=== PATIENT | male | born 1945 | race African-American/Black ===

== ENCOUNTER 2020-05-09 13:35 | Inpatient (IN) | payer MEDICARE, OTHER ==
[~2020-05-09] VITALS: Ht 170.2 cm; Wt 62.3 kg
--- NOTE | 2020-05-09 13:59 | Emergency Department Note ---
History of Present Illnes History of Present Illness Chief Complaint: General Medicine Complaints History of Present Illness This is a 74 year old male Chief Complaint Comment SENT OVER BY HIS DOCTOR FOR HGB 6.0/HCT 22.8 C/O OF 1 1/2 MTHS DISTENDED ABDOMEN, LEFT UPPER ABDOMINAL PAIN, SHORTNESS OF BREATH. WEIGHT LOSS. X 3 WEEKS "PINGING HEADACHE". Historian: Patient Arrival Mode: Car Additional Treatment SPONGE DIVER: NONE Store Associate Required: No Onset (how long ago): week(s) Location: [facility] Quality: Sharp Radiation: Reports non-radiation Severity: moderate Onset quality: gradual Duration (how long): week(s) Timing of current episode: constant Progression: unchanged Chronicity: new Context: Denies recent illness, Denies recent surgery Relieving factors: none Exacerbating factors: none Associated symptoms: Reports denies other symptoms Treatments prior to arrival: none Past Medical/Family History Physician Review I have reviewed the patient's past medical and family history. Any updates have been documented here. Past Medical History Recent Fever: No Clinical Suspicion of Infectio: No New/Unexplained Change in Ment: No Other Medical History: ARTHRITIS Other Surgery: LEFT ANKLE FX Review of Systems Review of Systems Constitutional: Reports no symptoms EENTM: Reports no symptoms Cardiovascular: Reports no symptoms Respiratory: Reports no symptoms Gastrointestinal: Reports abdominal pain Genitourinary: Reports no symptoms Musculoskeletal: Reports no symptoms Integumentary: Reports no symptoms Neurological: Reports no symptoms Psychological: Reports no symptoms Endocrine: Reports no symptoms Hematological/Lymphatic: Reports no symptoms Physical Exam Related Data Triage Vital Signs Vital Signs Date Time Temp Pulse Resp B/P (MAP) Pulse Ox O2 Delivery O2 Flow Rate FiO2 05/09/20 13:49 98.5 95 18 157/85 100 Room Air Vital signs reviewed: Yes Physical Exam CONSTITUTIONAL Constitutional: Present well-developed, Present well-nourished HENT HENT: Present normocephalic, Present atraumatic, Present oropharynx clear/moist, Present nose normal HENT L/R: Present left ext ear normal, Present right ext ear normal EYES Eyes: Reports PERRL, Reports conjunctivae normal NECK Neck: Present ROM normal PULMONARY Pulmonary: Present effort normal, Present breath sounds normal CARDIOVASCULAR Cardiovascular: Present regular rhythm, Present heart sounds normal, Present capillary refill normal, Present normal rate GASTROINTESTINAL Abdominal: Present soft, Present nontender, Present bowel sounds normal GENITOURINARY Genitourinary: Present exam deferred SKIN Skin: Present warm, Present dry MUSCULOSKELETAL Musculoskeletal: Present ROM normal NEUROLOGICAL Neurological: Present alert, Present oriented x 3, Present no gross motor or sensory deficits PSYCHOLOGICAL Psychological: Present mood/affect normal, Present judgement normal Results Laboratory Lab results reviewed: Yes Imaging Imaging results reviewed: Yes Diagnostics Tests Diagnostic test(s) reviewed: Yes Procedures 12 Lead ECG Interpretation ECG Interpretation : Store Associate: Interpreted by ED physician Date: May 09, 2020 Rhythm: sinus rhythm Rate: normal BPM: 89 QRS axis: normal ST segments normal: Yes T waves normal: Yes Clinical Impression: non-specific ECG Assessment & Plan Medical Decision Making MDM 74 y.o Presents for anemia. W/u shows cancer and anemia. Will admit to Dr. Olvera. 1UPRBC given. Reassessment Reassessment time: 17:58 Reassessment Well appearing, NAD Assessment & Plan Final Impression: (1) Anemia Depart Disposition: ADMITTED Last Vital Signs Date Time Temp Pulse Resp B/P (MAP) Pulse Ox O2 Delivery O2 Flow Rate FiO2 05/09/20 13:49 98.5 95 18 157/85 100 Room Air PRINCESS EASLEY MD May 09, 2020 13:59
[2020-05-09 14:51] LABS: BASOPHILS % 0.3 % (0.0-1.0); EOSINOPHILS # (AUTO) 0.1 (0.0-0.4); EOSINOPHILS % 0.8 % (0.0-6.0); HEMATOCRIT 23.7 % (38.2-49.6); LYMPHOCYTES # (AUTO) 1.2 (1.0-3.2); LYMPHOCYTES % 11.9 % (18.0-39.1); MEAN CORPUSCULAR HEMOGLOBIN 16.8 pg (28-32); MEAN CORPUSCULAR HGB CONC 27.4 g/dL (31-35); MEAN CORPUSCULAR VOLUME 61.1 fL (81-99); MONOCYTES # (AUTO) 1.2 (0.2-0.8); MONOCYTES % 11.5 % (4.4-11.3); NEUTROPHILS # (AUTO) 7.7 (2.1-6.9); PLATELET COUNT 529 x10e3/uL (140-360); RED BLOOD COUNT 3.88 x10e6/uL (4.3-5.7); RED CELL DISTRIBUTION WIDTH 21.9 % (11.7-14.4)
[2020-05-09 14:55] LABS: HEMOGLOBIN 6.5 g/dL (14.0-18.0)
[2020-05-09] MEDS ORDERED: SODIUM CHLORIDE 0.9% 250ML 250 ML IV ONE (15:00)
[2020-05-09 15:10] LABS: ALANINE AMINOTRANSFERASE 8 IU/L (0-55); ALBUMIN 3.5 g/dL (3.5-5.0); ALBUMIN/GLOBULIN RATIO 0.9 (0.8-2.0); ALKALINE PHOSPHATASE 150 IU/L (40-150); ANION GAP 19.1 mmol/L (8-16); BLOOD UREA NITROGEN 12 mg/dL (7-26); BUN/CREATININE RATIO 14 (6-25); CARBON DIOXIDE 20 mmol/L (22-29); CHLORIDE 101 mmol/L (98-107); CREATININE, SERUM 0.84 mg/dL (0.72-1.25); EST GLOMERULAR FILTRATION RATE > 60 ML/MIN (60-); GLUCOSE 90 mg/dL (74-118); POTASSIUM 4.1 mmol/L (3.5-5.1); SODIUM 136 mmol/L (136-145)
[2020-05-09] MEDS ORDERED: SODIUM CHLORIDE 0.9% 50ML 50 ML ONE (15:28)
[2020-05-09] MEDS ORDERED: IOPAMIDOL 370 MG/ML 200 ML INFUS..BTL INJ ONE (15:28)
[2020-05-09 15:39] LABS: ANISOCYTOSIS MODERATE; HYPOCHROMASIA MODERATE; POIKILOCYTOSIS MODERATE
[2020-05-09 15:40] LABS: PLATELET ESTIMATE SLIGHTLY INCREASED; SCHISTOCYTES FEW; TARGET CELLS MODERATE
[2020-05-09 15:41] LABS: MICROCYTOSIS MODERATE; PLATELET MORPHOLOGY COMMENT FEW LARGE; POLYCHROMASIA FEW
--- NOTE | 2020-05-09 17:03 | Diagnostic Imaging Report ---
CT of the abdomen and pelvis, with contrast. History: Left upper quadrant abdominal pain. Comparison: None available. Technique: Multidetector CT scanning of the abdomen and pelvis was performed from the level of the lung bases to the inferior pubic rami after intravenous administration of contrast. Coronal and sagittal multiplanar reformations were obtained. RADIATION DOSE: Total DLP: 566.37 mGy*cm Dose modulation, iterative reconstruction, and/or weight based adjustment of the mA/kV was utilized to reduce the radiation dose to as low as reasonably achievable. FINDINGS: There is bibasilar atelectasis. The imaged portion of the heart demonstrates no significant abnormalities. There is a large volume of ascites present within the abdomen and pelvis. 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 A large, heterogeneous enhancing soft tissue density is identified within the left abdomen measuring approximately 5.6 x 7.1 cm (axial image 40) and may represent a conglomerate of peritoneal implants. Innumerable hypodense masses are identified within the liver. The largest measures 4.8 x 8.0 x 4.3 cm and is located within the superior right hepatic lobe. The stomach, spleen, pancreas, and bilateral adrenal glands are unremarkable. The kidneys are normal in size and location and symmetrically. There is no evidence for nephrolithiasis or hydronephrosis. A subcentimeter hypodensity is identified within the inferior pole the right kidney which is too small to definitively characterize. No ureteral stone or dilatation is appreciated. The urinary bladder demonstrates no significant abnormalities. The prostate is enlarged measuring 5 cm. The abdominal aorta is normal in course and caliber with atherosclerotic calcifications. The IVC is unremarkable. The portal venous system, SMV, splenic vein are patent. There is enlargement of the right common femoral vein which may be secondary to underlying DVT but suboptimally evaluated on this CT examination. Please note evaluation of bowel is limited without the use of enteric contrast material. There is mild wall thickening/distention of loops of small bowel which may be reactive secondary to ascites. There is no evidence for high-grade bowel obstruction. There is no intraperitoneal free air. Prominent to mildly enlarged lymph nodes are noted within the myriam hepatis and pericaval regions. The osseous structures demonstrate no evidence for acute fracture or destructive process. The extraperitoneal soft tissues are unremarkable. IMPRESSION: 1. Findings concerning for metastatic disease including numerable hepatic masses and peritoneal implants as detailed above. 2. Large volume of abdominopelvic ascites. 3. Mild wall thickening/distention noted of loops of small bowel which may be reactive secondary to ascites. No evidence for high-grade bowel obstruction. 4. Enlargement of the right common femoral vein which may reflect underlying DVT but is suboptimally evaluated on this examination. Recommend further evaluation with dedicated venous Doppler. Signed by: Dr. Vincent Joy MD on 05/09/2020 4:59 PM
--- OUTSIDE RECORDS SUMMARY | 2020-05-09 18:07 | XMS REPORT | Continuity of Care Document ---
Author Author [facility] Organization [facility] Address [address] [place] [id number] Phone Unavailable Care Team Providers Care Lurer Name Role Phone Lakisha Crane Attphyetienne Unavailable Problems This patient has no known problems. Allergies, Adverse Reactions, Alerts This patient has no known allergies or adverse reactions. Medications This patient has no known medications. Procedures This patient has no known procedures. Results Test Description Test Time Test Comments Results Result Comments Source CT ABDOMEN/PELVIS W 2020-05-09 16:41:00 [place] [address] Patient Name: GUIDO YE MR #: [id number] : 1945 Age/Sex: 74/M Req #: [id number] Adm Physician: Ordered by: Princess Crane MD Report #: [id number] Location: ER Room/Bed: Procedure: [id number] CT/CT ABDOMEN/PELVIS W Exam Date: 05/09/20 Exam Time: 1600 REPORT STATUS: Signed CT of the abdomen and pelvis, with contrast. History: Left upper quadrant abdominal pain. Comparison: None available. Technique: Multidetector CT scanning of the abdomen and pelvis was performed from the level of the lung bases to the inferior pubic rami after intravenous administration of contrast. Coronal and sagittal multiplanar reformations were obtained. RADIATION DOSE: Total DLP: 566.37 mGy*cm Dose modulation, iterative reconstruction, and/or weight based adjustment of the mA/kV was utilized to reduce the radiation dose to as low as reasonably achievable. FINDINGS: There is bibasilar atelectasi s. The imaged portion of the heart demonstrates no significant abnormalities. There is a large volume of ascites present within the abdomen and pelvis. 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 A large, heterogeneous enhancing soft tissue density is identified within the left abdomen measuring approximately 5.6 x 7.1 cm (axial image 40) and may represent a conglomerate of peritoneal implants. Innumerable hypodense masses are identified within the liver. The largest measures 4.8 x 8.0 x 4.3 cm and is located within the superior right hepatic lobe. The stomach, spleen, pancreas, and bilateral adrenal glands are unremarkable. The kidneys are normal in size and location and symmetrically. There is no evidence for nephrolithiasis or hydronephrosis. A subcentimeter hypodensity is identified within the inferior pole the right kidney which is too small to definitively characterize. No ureteral stone or dilatation is appreciated. The urinary bladder demonstrates no significant abnormalities. The prostate is enlarged measuring 5 cm. The abdominal aorta is normal in course and caliber with atherosclerotic calcifications. The IVC is unremarkable. The portal venous system, SMV, splenic vein are patent. There is enlargement of the right common femoral vein which may be secondary to underlying DVT but suboptimally evaluated on this CT examination. Please note evaluation of bowel is limited without the use of enteric contrast material. There is mild wall thickening/distention of loops of small bowel which may be reactive secondary to ascites. There is no evidence for high-grade bowel obstruction. There is no intraperitoneal free air. Prominent to mildly enlarged lymph nodes are noted within the myriam hepatis and pericaval regions. The osseous structures demonstrate no evidence for acute fracture or destructive process. The extraperitoneal soft tissues are unremarkable. IMPRESSION: 1. Findings concerning for metastatic disease including numerable hepatic masses and peritoneal implants as detailed above. 2. Large volume of abdominopelvic ascites. 3. Mild wall thickening/distention noted of loops of small bowel which may be reactive secondary to ascites. No evidence for high-grade bowel obstruction. 4. Enlargement of the right common femoral vein which may reflect underlying DVT but is suboptimally evaluated on this examination. Recommend further evaluation with dedicated venous Doppler. Signed by: Dr. Vincent Joy MD on 05/09/2020 4:59 PM Dictated By: VINCENT JOY MD 58 Transcribed By: SIRISHA on 05/09/201658 COPY TO: PRINCESS CRANE MD
--- NOTE | 2020-05-09 19:33 | NUR ---
blood transfusion completed, no adverse reactions noted
--- NOTE | 2020-05-09 19:40 | NUR ---
REPORT RECEIVED FROM VINCENZO BUTLER RN, PATIENT PENDING ARRIVAL TO THE FLOOR, S/P BLOOD TRANSFUSION FOR HGN 6.5, BLOOD REDRAW IN THE AM, AOX3, FULL CODE, PENDING ARRIVAL TO THE FLOOOR
--- NOTE | 2020-05-09 19:44 | NUR ---
nursing chart check: laina rn-manager of housekeeping notified of stat venous doppler from previous shift.
[2020-05-09 19:56] LABS: BILIRUBIN,URINE NEGATIVE (NEGATIVE); CLARITY,URINE SL CLOUDY (CLEAR); COLOR,URINE YELLOW (YELLOW); KETONES,URINE TRACE (NEGATIVE); LEUKOCYTE ESTERASE ,URINE NEGATIVE (NEGATIVE); NITRITE,URINE NEGATIVE (NEGATIVE); PROTEIN,URINE DIPSTICK NEGATIVE (NEGATIVE); URINE UROBILINOGEN 0.2 mg/dL (0.2 - 1)
[2020-05-09 19:57] LABS: BACTERIA,URINE RARE /HPF; EPITHELIAL CELLS,URINE RARE /LPF; RBC,URINE 0-5 /HPF (0-5); WBC,URINE (MAN) 0-5 /HPF (0-5)
[2020-05-09 20:00] VITALS: BP 172/87
[2020-05-09 20:51] VITALS: BP 172/87
[2020-05-09 21:43] VITALS: BP 172/87
[2020-05-09] MEDS: CLONIDINE HCL 0.1 MG TAB PO PRN (21:55)
--- NOTE | 2020-05-09 23:10 | NUR ---
CT AB/PELVIS Enlargement of the right common femoral vein which may reflect underlying DVT but is suboptimally evaluated on this examination. Recommend further evaluation with dedicated venous Doppler. DOPPLER COMPLETED NEGATIVE
[2020-05-10] VITALS (13 sets, daily range): BP systolic 149–173; BP diastolic 83–94
[2020-05-10 05:23] LABS: BASOPHILS % 0.3 % (0.0-1.0); EOSINOPHILS # (AUTO) 0.2 (0.0-0.4); EOSINOPHILS % 1.4 % (0.0-6.0); HEMATOCRIT 23.8 % (38.2-49.6); LYMPHOCYTES # (AUTO) 1.5 (1.0-3.2); LYMPHOCYTES % 13.5 % (18.0-39.1); MEAN CORPUSCULAR HEMOGLOBIN 17.9 pg (28-32); MEAN CORPUSCULAR HGB CONC 28.6 g/dL (31-35); MEAN CORPUSCULAR VOLUME 62.8 fL (81-99); MONOCYTES # (AUTO) 1.4 (0.2-0.8); MONOCYTES % 12.6 % (4.4-11.3); NEUTROPHILS # (AUTO) 7.9 (2.1-6.9); NEUTROPHILS % 71.7 % (38.7-80.0); PLATELET COUNT 455 x10e3/uL (140-360); RED BLOOD COUNT 3.79 x10e6/uL (4.3-5.7); RED CELL DISTRIBUTION WIDTH 24.7 % (11.7-14.4)
[2020-05-10 05:27] LABS: HEMOGLOBIN 6.8 g/dL (14.0-18.0)
[2020-05-10 05:48] LABS: ANION GAP 16.9 mmol/L (8-16); BLOOD UREA NITROGEN 11 mg/dL (7-26); BUN/CREATININE RATIO 14 (6-25); CALCIUM 7.6 mg/dL (8.4-10.2); CARBON DIOXIDE 18 mmol/L (22-29); CHLORIDE 103 mmol/L (98-107); CREATININE, SERUM 0.78 mg/dL (0.72-1.25); EST GLOMERULAR FILTRATION RATE > 60 ML/MIN (60-); GLUCOSE 97 mg/dL (74-118); POTASSIUM 3.9 mmol/L (3.5-5.1); SODIUM 134 mmol/L (136-145)
--- NOTE | 2020-05-10 06:53 | NUR ---
lab called critical hbg result 6.8, MD Olvera paged, awaiting callback
[2020-05-10 10:22] LABS: ANISOCYTOSIS MODERATE; HYPOCHROMASIA MODERATE
[2020-05-10 10:23] LABS: PLATELET ESTIMATE SLIGHTLY INCREASED; RBC MORPHOLOGY COMMENT ABNORMAL
[2020-05-10 10:28] LABS: PLATELET MORPHOLOGY COMMENT RARE EDTA CLUMPING
[2020-05-10] MEDS: HYDROMORPHONE 1MG/1ML INJ IV PRN (17:05)
[2020-05-10] MEDS: DOCUSATE SODIUM 100 MG CAP PO SCH (17:05)
--- NOTE | 2020-05-10 19:28 | NUR ---
PATIENT PENDING BLOOD TRANSFUSION 3 UNITS PRBC, LAB CALLED, BLOOD NOT READY OF YET, THEY WILL CALL WHEN READY, CONSENT CONFIRMED SIGNED ALREADY IN CHART
[2020-05-10] MEDS ORDERED: SODIUM CHLORIDE 0.9% 250ML 250 ML IV SCH (19:30)
[2020-05-10] MEDS ORDERED: FUROSEMIDE INJ 10 MG/ML 4 ML VIAL IV SCH (19:30)
[2020-05-10] MEDS: CLONIDINE HCL 0.1 MG TAB PO PRN (21:00)
--- NOTE | 2020-05-10 21:15 | NUR ---
BLOOD TRANSFUSION, UNIT #1 STARTED, PATIENT AOX3, NO DISTRESS NOTED, BLOOD PRESSURE NOTED >160 CLONIDINE GIVEN AT START OF TRANSFUSION TO HELP DECREASE BLOOD PRESSURE, IV SITE RAC PATENT NO INFILTRATION NOTED, SITE NO SWELLING NO LEAKING NOTED, DENIES PAIN, VITALS MONITORED PER PROTOCOL FOR BLOOD TRANSFUSION CALL LIGHT WITHIN REACH
--- NOTE | 2020-05-10 22:23 | NUR ---
MD GONZALEZ NOTIFIED BLOOD TRANSFUSION STARTED AND PATIENT BLOOD PRESSURE CURRENTLY 170/94, ATTEMPTING TO GET ORDERS FOR MEDICATION TO DECREASE BLOOD PRESSURE, DIRECTLY CONTACTED WITH ME ORDERED FOR CLONIDINE 0.1MG PO Q4H TO BE GIVEN FOR SBP <160 AND PROCEED WITH BLOOD TRANSFUSION ORDERED
[2020-05-11] VITALS (11 sets, daily range): BP systolic 148–182; BP diastolic 89–104
--- NOTE | 2020-05-11 00:30 | NUR ---
blood transfusion completed for unit #1, tolerated well
[2020-05-11] MEDS ORDERED: CLONIDINE HCL 0.1 MG TAB PO PRN (01:00)
--- NOTE | 2020-05-11 04:01 | NUR ---
SECOND UNIT OF PRBC OF THREE COMPLETED, NO REACTION NOTED, IV SITE LEFT AC PATENT FLUSHES WELL, PATIENT SLEEPING, REQUESTING THAT HE IS ABLE TO GET "FEW HOURS OF SLEEP BEFORE NEXT UNIT/LAST ONE IS GIVEN", ADVISED PATIENT THAT SECOND UNIT CAN BE STARTED IN THE AM PRIOR TO BREAKFAST, WILL ENDORSE TO DAYSHIFT TO GIVEN LAST UNIT, FOLLOWED BY WILL PT VSS AFEBRILE AT THIS TIME
--- NOTE | 2020-05-11 06:05 | NUR ---
MD JENKINS OFFICE CALLED FOR ORDERS, PT C/O CONSTIPATION, UNABLE TO COLLECT STOOL OCCULT, PT WANTED ME TO CALL MD TO GET SOMETHING STRONGER
[2020-05-11] MEDS: DOCUSATE SODIUM 100 MG CAP PO SCH ×2 (08:05→16:27)
[2020-05-11] MEDS ORDERED: SODIUM CHLORIDE 0.9% 250ML 250 ML ONE (09:26)
--- NOTE | 2020-05-11 09:30 | NUR ---
blood transfusion started.
--- NOTE | 2020-05-11 10:55 | Progress Note ---
DATE: 05/11/2020 SUBJECTIVE: Mr. Mendes is a 74-year-old man, who denies any prior medical history, came to the emergency room because he was sent by his doctor because hemoglobin was low. He was noticed to have abdominal distention and ascites, seen by hemato-oncologist. The patient has end-stage cancer. He will benefit from hospice. PHYSICAL EXAMINATION: GENERAL: Today, he is awake and alert. VITAL SIGNS: Temperature is 97.9, blood pressure 155/99. HEART: Regular rate. LUNGS: Poor inspiratory effort. ABDOMEN: Distended and has ascites. LABORATORY DATA: On the blood work, white count is 11.06, hemoglobin is 6.8, hematocrit 23.8. Potassium 3.9, creatinine 0.78. COVID test came back negative. Abdominal and pelvic CT showed metastatic disease with several hepatic masses and peritoneal implants, large volume ascites, mild wall thickening and distention of the small bowel loops. Enlargement of the right common femoral vein that reflects DVT. Venous Doppler was negative. It did not show any lower extremity DVT.. ASSESSMENT: 1. Severe anemia. 2. Weakness. 3. Abdominal distention and ascites. 4. Metastatic cancer with diseases of the liver and peritoneal area probably secondary from bowel from GI malignancy. 5. Hypertension. PLAN: At present time, continue to monitor hemoglobin, transfuse as needed. Continue blood pressure medications. Discussed with Dr. Winchester. The patient has a terminal disease. He is appropriate for hospice, so we are going to get hospice involved in the case. Overall prognosis of the patient is poor due to the dissemination of his cancer. MD JOSE Ortiz/MODL /[id number]
--- NOTE | 2020-05-11 11:48 | NUR ---
WENT TO SPEAK WITH PT ABOUT THE HOSPICE ORDER, HE BECAME UPSET AND STATED NO ONE TOLD HIM ABOUT IT. HE STATES THE DOCTOR JUST TOLD HIM HE HAS CANCER NOT WHAT KIND OR ANYTHING, HE STATES THE DOCTOR TOLD HIM THEY WERE COMING BACK TO DISCUSS THE PLAN AFTER HIS TRANSFUSION BUT HE HASN'T BEEN SICK OR IN THE HOSPITAL SINCE 1987. DOES NOT WANT TO SIGN FOR ANYTHING UNTIL HIS DOCTOR HAS THE DISCUSSION ABOUT WHAT TYPE AND WHAT CAN BE DONE.
--- NOTE | 2020-05-11 12:16 | Progress Note ---
DATE: 05/11/2020 SUBJECTIVE: Mr. Mars is a 74-year-old black gentleman who was referred to me for evaluation of anemia. I have seen the patient yesterday. I have spoken to the nurses along with the patient in the room. He was hard of hearing. However, we were able to communicate with him that he has an underlying malignancy. I had written for blood transfusion. I had given the instructions to the nurse. I had a call late night from the nurse that his blood pressure went up with blood transfusion. I tried to explain to her that he is hypertensive, he is on clonidine, and his initial blood pressure was 158/85, to go ahead and give him clonidine 0.1 mg p.o. q.4 hours p.r.n. for systolic above 160. However, she kept interrupting me that he has gotten clonidine. I again tried to keep my composure. I did tell her that hypertension is not a reaction to blood transfusion, hypotension would be considered an allergy. However, she still kept interrupting me. At this time, I said are you listening to me and she was fairly nasty over the phone telling me oh yeah, oh yeah. I did tell her please proceed with blood transfusion, give him the clonidine. I do not see report of the CBC and electrolytes, which I have ordered today. I will confine myself to Hematology/Oncology. Prognosis of this patient remains extremely guarded, CEA still elevated. MD OTILIA Galicia/ROCHELLE /[id number]
--- NOTE | 2020-05-11 13:00 | NUR ---
prbc transfusion completed. vitals stable.
--- NOTE | 2020-05-11 13:20 | NUR ---
patient had large bowel movement. occult stool sent.
[2020-05-11] MEDS ORDERED: FUROSEMIDE INJ 10 MG/ML 4 ML VIAL ONE (14:21)
[2020-05-11] MEDS: HYDROMORPHONE 1MG/1ML INJ IV PRN (14:32)
--- NOTE | 2020-05-11 14:46 | Consultation ---
DATE OF CONSULTATION: 05/10/[address] Claudine Olvera HISTORY OF PRESENT ILLNESS: Jerad Mendes is a 74-year-old black gentleman referred to me for evaluation of anemia. No history of hematochezia, melena, hematuria, hematemesis, or hemoptysis. The patient claims last hospitalization he had was in 1987. SOCIAL HISTORY: Noncontributory. FAMILY HISTORY: Noncontributory. ALLERGIES: REPORTED NONE. MEDICATIONS: At this time: 1. Clonidine. 2. Hydromorphone. 3. Docusate. REVIEW OF SYSTEMS: HEENT: Normal. CARDIAC: Normal. RESPIRATORY: Normal. GI: Normal. : Normal. MUSCULOSKELETAL: Normal. SKIN AND BREASTS: Normal. NEUROENDOCRINE: Normal. PAST MEDICAL HISTORY: Except for hypertension, the patient does not have any other medical problems. PHYSICAL EXAMINATION: GENERAL: A rather thin-built male, very hard of hearing, anemic. HEART: Within normal limits. LUNGS: Clear. ABDOMEN: Soft. Liver is felt 4 inches down the costal margin. RECTAL: Deferred. CENTRAL NERVOUS SYSTEM: Essentially, normal. EXTREMITIES: Essentially, normal. LABORATORY DATA: Lab shows hemoglobin of 6.8, hematocrit of 23.8, white count 11,600, platelets reported at 529,000. Chemistry showed sodium of 136, potassium 4.1, chloride is 101, CO2 of 20, BUN 12, creatinine 0.84, glucose is 90, and calcium 8. Alkaline phosphatase 80, SGOT 22, SGPT 8, total protein 7.6, albumin 3.5, globulin 4.1. IMAGING DATA: CAT scan of the abdomen shows the patient had a large volume ascites. Multiple enhancing peritoneal implants within the abdomen. A large heterogenous enhancing soft tissue density within the left abdomen 5.6 x 7.1 cm, suggestive of peritoneal implants, innumerable hypodense masses within the liver. The largest measures 4.8 x 8 x 4.3 cm, subcentimeter hypodensity identified within their inferior pole of the right kidney, which was too small to characterize. Prostate is enlarged, measuring 5 cm. There was enlargement of the right common femoral vein, there was mild wall thickening of the loops of small bowel. IMPRESSION: 1. Iron-deficiency anemia. 2. Secondary thrombocythemia. 3. Hypokalemia. 4. Hyperglobulinemia. 5. Ascites. 6. Peritoneal metastases. 7. Liver metastases. PLAN, COMMENTS AND SUGGESTIONS: Suggest CEA. Suggest blood transfusion. Suggest GI consult. Suggest INFeD. The patient is a terminal patient. Consider hospitalist strongly. Alis Winchester MD MAQ/MODL /[id number] cc: MD Phuc Ortiz MD
--- NOTE | 2020-05-11 19:05 | NUR ---
RECEIVED BEDSIDE SHIFT REPORT FROM PREVIOUS NURSE. CALL LIGHT WITHIN REACH. PATIENT SLEEPING IN BED.
[2020-05-12] VITALS (8 sets, daily range): BP systolic 146–164; BP diastolic 91–100
[2020-05-12 05:19] LABS: BASOPHILS % 0.3 % (0.0-1.0); EOSINOPHILS # (AUTO) 0.2 (0.0-0.4); EOSINOPHILS % 1.3 % (0.0-6.0); HEMATOCRIT 36.8 % (38.2-49.6); HEMOGLOBIN 11.5 g/dL (14.0-18.0); LYMPHOCYTES # (AUTO) 1.3 (1.0-3.2); LYMPHOCYTES % 10.8 % (18.0-39.1); MEAN CORPUSCULAR HEMOGLOBIN 21.4 pg (28-32); MEAN CORPUSCULAR HGB CONC 31.3 g/dL (31-35); MEAN CORPUSCULAR VOLUME 68.5 fL (81-99); MONOCYTES # (AUTO) 1.5 (0.2-0.8); NEUTROPHILS # (AUTO) 8.6 (2.1-6.9); NEUTROPHILS % 74.2 % (38.7-80.0); PLATELET COUNT 347 x10e3/uL (140-360); RED BLOOD COUNT 5.37 x10e6/uL (4.3-5.7)
[2020-05-12 05:35] LABS: ANION GAP 18.7 mmol/L (8-16); BLOOD UREA NITROGEN 8 mg/dL (7-26); BUN/CREATININE RATIO 11 (6-25); CALCIUM 7.7 mg/dL (8.4-10.2); CARBON DIOXIDE 18 mmol/L (22-29); CHLORIDE 102 mmol/L (98-107); CREATININE, SERUM 0.73 mg/dL (0.72-1.25); EST GLOMERULAR FILTRATION RATE > 60 ML/MIN (60-); GLUCOSE 88 mg/dL (74-118); POTASSIUM 3.7 mmol/L (3.5-5.1); SODIUM 135 mmol/L (136-145)
--- NOTE | 2020-05-12 07:18 | NUR ---
GAVE BEDSIDE SHIFT REPORT TO ONCOMING NURSE. CALL LIGHT WITHIN REACH. PATIENT IN BED. HOURLY ROUNDING PERFORMED.
[2020-05-12] MEDS: DOCUSATE SODIUM 100 MG CAP PO SCH ×2 (09:00→17:00)
[2020-05-12 09:32] LABS: ANISOCYTOSIS SLIGHT; BAND NEUTROPHILS % (MANUAL) 11 %; LYMPHOCYTES % (MANUAL) 20 % (19-48); MONOCYTES % (MANUAL) 5 % (3.4-9.0); NEUTROPHILS % (MANUAL) 64 % (40-74)
--- NOTE | 2020-05-12 10:21 | Progress Note ---
DATE: 05/12/2020 SUBJECTIVE: Mr. Mendes is a 74-year-old male, was referred to me for evaluation of anemia. For detailed consult, please review my dictation dated 05/11/2020. The patient had blood transfusion from 6.5 to 11.5. 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 His CEA is 1264. Again denoting epithelial origin, however, the patient is suggested hospice. I have discussed with Dr. Hayward, who is on-call for Dr. Olvera. No desire of treating him because he has far advanced malignancy. Hospice would be ideal. I will sign off one he signs hospice. Thank you very much for allowing me to participate in management of this patient. Alis Winchester MD MAQ/MODL /[id number] cc: MD Claudine Contreras MD
--- NOTE | 2020-05-12 13:44 | NUR ---
CM to pt's bedside. Pt stated he was told about his diagnosis and is in agreement with hospice. Pt states he was fine to go with any company. Choice letter signed for [facility]. Copy of choice letter given to pt. Discussed IMM with pt. He verbalized understanding. copy to pt. Signed copies of IMM and choice letter placed in chart. Referral faxed to [facility] at [phone]. Tom with [facility] was informed of referral and will contact pt.
--- NOTE | 2020-05-12 13:56 | Progress Note ---
DATE: 05/12/2020 CHIEF COMPLAINT/HISTORY OF PRESENT ILLNESS: This is a 74-year-old man, whose primary treating diagnosis is widespread metastatic malignancy with unknown origin. The patient has massive intraperitoneal and liver metastases. The patient's CEA level is elevated at 1264. The patient's white blood cell count today is 11,600 with 64% segmented neutrophils and 11% bands. The patient's hemoglobin is 11.5 g/dL, but he was transfused 4 units of packed red blood cells on May 11, 2020. The patient's BUN and creatinine today is 8 and 0.73 respectively. On May 09, 2020, the patient's AST and ALT were normal at 22 and 8 respectively. The patient voices no complaints other than mild constipation, which is actually relieved with prune juice. The patient was seen by Oncology, namely Dr. Alis Winchester, who highly recommended palliative treatment in the form of hospice care. The patient states he has lost 35 pounds in one year. REVIEW OF SYSTEMS: As per HPI. PHYSICAL EXAMINATION: GENERAL: He is awake and alert. He is fully oriented. He is in no distress. VITAL SIGNS: Height 5 feet 7 inches, weight 125 pounds, BMI 19. Blood pressure is 146/94, pulse is 100, respiratory rate 18, temperature 98.7, and oxygen saturation 100% on room air. INTEGUMENT: Skin is warm and dry. No pallor, jaundice, or diaphoresis. HEENT: Anicteric sclerae. Moist mucous membranes. NECK: Supple. CARDIOVASCULAR: Tachycardic rate. Regular rhythm. LUNGS: No rales. No rhonchi. No wheezes. ABDOMEN: Distended. EXTREMITIES: No edema or deformity, but he has muscle wasting. DIAGNOSES: 1. Widespread metastatic malignancy of unknown primary. 2. Massive intraperitoneal/liver metastases. 3. Iuwlt-ed-ellldgx anemia secondary to malignancy. 4. Underweight, BMI 19. PLAN: 1. I discussed with patient at length the results of his blood tests and imaging tests. 2. I did inform the patient that he has widely metastatic malignancy of unknown origin that carries an extremely poor prognosis. 3. I discussed end of life issues at length with the patient. 4. I did discuss the idea of pursuing hospice care and the patient is open to enrolling in this program. I spent 40 minutes in the care of this patient. MD ENRIQUE Contreras/ROCHELLE /[id number] MTDFahad
[2020-05-12] MEDS: HYDROMORPHONE 1MG/1ML INJ IV PRN (18:24)
--- NOTE | 2020-05-12 19:45 | NUR ---
Received the pt in report.aaox3.no pain voiced.iv to right ac is patent.bed locked and in lowest position. reena light within reach.instructed to call for assistance as needed.resting in the bed.
[2020-05-13] VITALS (9 sets, daily range): BP systolic 141–184; BP diastolic 86–102
[2020-05-13 06:24] LABS: BASOPHILS # (AUTO) 0.1 (0.0-0.1); BASOPHILS % 0.4 % (0.0-1.0); EOSINOPHILS # (AUTO) 0.2 (0.0-0.4); EOSINOPHILS % 1.3 % (0.0-6.0); HEMATOCRIT 35.8 % (38.2-49.6); HEMOGLOBIN 11.2 g/dL (14.0-18.0); LYMPHOCYTES # (AUTO) 1.2 (1.0-3.2); LYMPHOCYTES % 10.2 % (18.0-39.1); MEAN CORPUSCULAR HEMOGLOBIN 22.4 pg (28-32); MEAN CORPUSCULAR HGB CONC 31.3 g/dL (31-35); MEAN CORPUSCULAR VOLUME 71.7 fL (81-99); MONOCYTES # (AUTO) 1.5 (0.2-0.8); MONOCYTES % 12.8 % (4.4-11.3); NEUTROPHILS # (AUTO) 8.5 (2.1-6.9); NEUTROPHILS % 74.9 % (38.7-80.0); PLATELET COUNT 302 x10e3/uL (140-360); RED BLOOD COUNT 4.99 x10e6/uL (4.3-5.7); RED CELL DISTRIBUTION WIDTH 29.2 % (11.7-14.4)
--- NOTE | 2020-05-13 07:00 | NUR ---
BED SIDE SHIFT REPORT GIVEN TO ONCOMING RN.STABLE CONDITION.
[2020-05-13 07:08] LABS: ALANINE AMINOTRANSFERASE 9 IU/L (0-55); ALBUMIN/GLOBULIN RATIO 0.8 (0.8-2.0); ALKALINE PHOSPHATASE 156 IU/L (40-150); ANION GAP 15.9 mmol/L (8-16); BLOOD UREA NITROGEN 12 mg/dL (7-26); BUN/CREATININE RATIO 15 (6-25); CALCIUM 8.1 mg/dL (8.4-10.2); CARBON DIOXIDE 19 mmol/L (22-29); CHLORIDE 100 mmol/L (98-107); CREATININE, SERUM 0.82 mg/dL (0.72-1.25); EST GLOMERULAR FILTRATION RATE > 60 ML/MIN (60-); GLUCOSE 102 mg/dL (74-118); POTASSIUM 3.9 mmol/L (3.5-5.1); SODIUM 131 mmol/L (136-145)
[2020-05-13] MEDS: DOCUSATE SODIUM 100 MG CAP PO SCH ×2 (08:32→16:46)
[2020-05-13 09:09] LABS: ANISOCYTOSIS MODERATE; PLATELET ESTIMATE ADEQUATE; PLATELET MORPHOLOGY COMMENT FEW EDTA CLUMPING
[2020-05-13 09:11] LABS: TARGET CELLS FEW
[2020-05-13 09:12] LABS: HYPOCHROMASIA SLIGHT; POLYCHROMASIA FEW; RBC MORPHOLOGY COMMENT ABNORMAL
[2020-05-13 09:13] LABS: LARGE PLATELETS FEW
--- NOTE | 2020-05-13 09:49 | Progress Note ---
DATE: 05/13/2020 SUBJECTIVE: Mr. Jerad Mendes is a 74-year-old black gentleman with massive intra-abdominal metastases with a CEA more than 1300, consistent with primary being epithelial most probably colon and/or stomach. Inoperable terminal cancer. I have spoken to both Dr. Olvera and Dr. Eleazar Hayward for a hospice. I will continue to observe him until he signs hospice. I have no desire of treating him with systemic chemotherapy or even a biopsy. MD OTILIA Galicia/MODL /[id number]
--- NOTE | 2020-05-13 12:35 | Discharge Summary ---
ADMIT DIAGNOSES: 1. Profound anemia. 2. Numerous hepatic masses with ascites. DISCHARGE DIAGNOSES: 1. 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 2. Massive intraperitoneal/liver metastases. 3. Acute on chronic anemia secondary to malignancy. 4. Status post transfusion of 4 units of packed red blood cells. 5. Underweight, BMI 19. HOSPITAL COURSE: This is a 74-year-old man, who was initially admitted to [facility] with diagnosis of profound anemia and numerous liver lesions with ascites. During this hospitalization, he was transfused 4 units of packed red blood cells. Hemoccult stool was negative. The patient underwent a CT of the abdomen and pelvis on admission that revealed findings concerning for metastatic disease including innumerable hepatic masses and peritoneal implants. He was also found to have significant amount of ascites. The patient underwent a venous Doppler ultrasound of the bilateral lower extremities, which did not reveal any findings consistent with a deep venous thrombosis. The patient was seen by an oncologist during this hospitalization, namely Dr. Alis Winchester, who ordered a CEA level. CEA level was 1264. The oncologist, namely Dr. Winchester stated that this gentleman most likely had a gastrointestinal epithelial malignancy most probably colon and/or stomach in origin. The oncologist felt this was an inoperable terminal cancer. The oncologist highly recommended palliative treatment in the form of hospice care. The idea of hospice care was discussed with the patient and he elected not to pursue hospice care. The patient stated he would like to seek a 2nd opinion at another hospital. The patient's discharge was planned for Thursday 9:00 a.m. on May 14, 2020. The patient's condition on discharge was stable with an overall extremely poor prognosis. DISCHARGE MEDICATIONS: 1. Colace 100 mg p.o. b.i.d. 2. Lotrel 5/10 once daily. 3. Tylenol #3 one t.i.d. p.r.n. pain, 30 prescribed, no refills. FOLLOWUP INSTRUCTIONS: The patient will be discharged tentatively on Thursday 9:00 a.m. on May 14, 2020. The patient will be provided copies of his CT abdomen and pelvis report. Once again, patient states he will seek a 2nd opinion at another hospital. Eleazar E Orahood, MD MEO/MODL /[id number] cc: MD Kemar Ortiz MD MTDD
[2020-05-13] MEDS: HYDROMORPHONE 1MG/1ML INJ IV PRN ×2 (16:47→22:52)
--- NOTE | 2020-05-13 19:15 | NUR ---
Received the pt in report.aaox3.no resp.distress.no pain voiced.bed locked and in lowest position.reena light within reach.pt denied any needs.lyeing in the bed.
[2020-05-14] VITALS: BP 156/94
[2020-05-14 04:00] VITALS: BP 156/97
[2020-05-14] MEDS: HYDROMORPHONE 1MG/1ML INJ IV PRN ×2 (05:09→09:32)
[2020-05-14 07:38] VITALS: BP 151/93
--- NOTE | 2020-05-14 08:45 | NUR ---
SBAR BEDSIDE REPORT RECEIVED FROM VETO ESPINOZA, PM SHIFT. PATIENT FOUND RESTING IN BED IN NO ACUTE DISTRESS. PT LOOKED UNCOMFORTABLE AND WAS REPOSITIONED IN BED. PT AAOX4, MAINLY GAMBIAN SPEAKING BUT CAN CONVERSE MINIMALLY IN GAMBIAN. PT DENIES ANY FURTHER NEEDS. PT WAS EDUCATED ON FALL RISK PRECAUTIONS AND VERBALIZED UNDERSTANDING. CALL LIGHT AND BELONGINGS PLACED NEARBY. WILL CONTINUE TO MONITOR.
[2020-05-14 09:00] VITALS: BP 151/93
[2020-05-14] MEDS: DOCUSATE SODIUM 100 MG CAP PO SCH (09:32)
--- NOTE | 2020-05-14 10:40 | NUR ---
PATIENT IS PREPARED FOR DISCHARGE. ALL PAPERWORK SIGNED. PERIPHERAL IV WAS DISCONTINUED WITHOUT COMPLICATIONS. CATHETER TIP INTACT DRY DRESSING APPLIED. PATIENT'S RIDE IS EN ROUTE BUT HAD TO MAKE TO STOP PRIOR TO ARRIVAL. PATIENT ASKED TO SIT AT HOSPITAL ENTRANCE UNACCOMPANIED. NURSE EXPLAINED SAFETY CONCERNS ASSOCIATED WITH SITTING AT HOSPITAL ENTRANCE UNACCOMPANIED. PATIENT VERBALIZED UNDERSTANDING. PATIENT WILL MAKE NURSE'S STATION AWARE WHEN HIS RIDE ARRIVES.
[2020-05-14 10:58] VITALS: BP 164/95
--- NOTE | 2020-05-14 12:29 | Progress Note ---
DATE: 05/14/2020 SUBJECTIVE: The patient is supposed to go home today. Mr. Mars is a 74-year-old man who denies any prior medical history, who came to the emergency room because he was found to be very anemic and he was found to have abdominal distention, ascites and disseminated metastases. He was seen by Dr. Winchester in the GI tract. Dr. Winchester state that the patient is terminal and he hospice. The patient refused hospice. He wants a 2nd opinion at [facility]. PHYSICAL EXAMINATION: GENERAL: Today, he is awake and alert. VITAL SIGNS: Temperature is 97.7, blood pressure 151/93. HEART: Regular rate. LUNGS: Clear to auscultation. ABDOMEN: Distended. LABORATORY DATA: On the blood work, white count 11.37, hemoglobin 11.2, hematocrit 35.8, potassium 3.9, creatinine 0.82, glucose 102. COVID test came back negative. Venous Doppler negative. DISCHARGE DIAGNOSES: 1. Severe anemia requiring blood transfusion. 2. Weakness. 3. Abdominal distention with ascites. 4. Metastatic cancer with disease of the liver and peritoneal area, probably primary in the GI tract. 5. Hypertension. PLAN: At the present time is the patient refused hospice. He wants a 2nd opinion at [facility], so the patient is going to be discharged home today and he was given Colace, Lotrel for hypertension and Tylenol No. 3. We are also going to provide copies of the CT of the abdomen and pelvis so he can get a 2nd opinion at [facility]. All this was discussed in detail with the patient. All questions were answered to satisfaction. MD JOSE Ortiz/ANNIEL /[id number]
--- NOTE | 2020-05-14 13:26 | NUR ---
PATIENT DISCHARGED HOME VIA PRIVATE VEHICLE. PATIENT RECEIVED DISCHARGE SUMMARY, WRITTEN PRESCRIPTIONS, AND EDUCATION SHEETS. PT VERBALIZED UNDERSTANDING.
== END 2020-05-14 13:26 | disposition hospice, home (50) | DRG 375 ==
LOC: ER 14:22 → ERHOLD 17:52 → MED/SURG2 19:42
PROVIDERS: ADMIT Internal Medicine; ATTEND Internal Medicine
PROC: 30233N1 Transfusion of Nonautologous Red Blood Cells into Peripheral Vein, Percutaneous Approach (ICD-10-PCS; principal; 2020-05-09)
PROC: 30233N1 Transfusion of Nonautologous Red Blood Cells into Peripheral Vein, Percutaneous Approach (ICD-10-PCS; 2020-05-10)
PROC: 30233N1 Transfusion of Nonautologous Red Blood Cells into Peripheral Vein, Percutaneous Approach (ICD-10-PCS; 2020-05-11)
DX: C78.6 Secondary malignant neoplasm of retroperitoneum and peritoneum (principal); R18.8 Other ascites; C78.7 Secondary malignant neoplasm of liver and intrahepatic bile duct; Z68.1 Body mass index [BMI] 19.9 or less, adult; D63.0 Anemia in neoplastic disease; C26.9 Malignant neoplasm of ill-defined sites within the digestive system; I10 Essential (primary) hypertension; D50.9 Iron deficiency anemia, unspecified; D47.3 Essential (hemorrhagic) thrombocythemia; E87.6 Hypokalemia; R77.1 Abnormality of globulin; R63.6 Underweight; Z11.59 Encounter for screening for other viral diseases
CPT/HCPCS: 36415; 74177; 80048; 80053; 81001; 82270; 82378; 83690; 85025; 86850; 86900; 86920; 93970; 99284; J1170; J1940; J7050; P9016; Q9967; U0002